=== PATIENT | female | born 1970 | race African-American/Black ===

== ENCOUNTER 2018-09-27 20:55 | Emergency (ER) | payer OTHER, MEDICAID ==
[~2018-09-27] VITALS: Ht 170.2 cm; Wt 79.0 kg
[2018-09-27 21:41] LABS: INR 1.1; PROTHROMBIN TIME 11.1 sec (9.6-11.0)
[2018-09-27 21:50] LABS: BASOPHILS % 0.9 % (0.0-2.0); EOSINOPHILS % 2.1 % (0.0-5.0); HEMATOCRIT. 43.6 % (36.0-48.0); HEMOGLOBIN. 14.7 g/dL (12.0-16.0); LYMPHOCYTES % 41.3 % (20.0-50.0); MEAN CORPUSCULAR HEMOGLOBIN 30.7 pg (28.0-32.0); MEAN CORPUSCULAR VOLUME 91.3 fL (81.0-99.0); MEAN PLATELET VOLUME 10.4 fl (7.4-10.4); MONOCYTES % 5.3 % (2.0-8.0); NEUTROPHILS % 50.4 % (40.0-76.0); PLATELET 229 x1000/uL (130-400); RED BLOOD CELL COUNT 4.78 mill/uL (4.2-5.4); RED CELL DISTRIBUTION WIDTH 16.1 % (11.6-14.6)
[2018-09-27 22:46] VITALS: BP 129/72
== END 2018-09-27 22:49 | disposition home or self-care (01) ==
LOC: ER 20:55
DX: R04.0 Epistaxis (principal); I11.0 Hypertensive heart disease with heart failure; I50.9 Heart failure, unspecified; Z98.890 Other specified postprocedural states
CPT/HCPCS: 36415; 99283

== ENCOUNTER 2018-11-23 18:58 | Emergency (ER) | payer OTHER, MEDICAID ==
[~2018-11-23] VITALS: Ht 170.2 cm; Wt 84.0 kg
[2018-11-23] MEDS ORDERED: IBUPROFEN 600MG TABLET PO ONE (20:45)
[2018-11-23] MEDS ORDERED: DIPHENHYDRAMINE 50MG CAPSULE PO ONE (20:45)
[2018-11-23 21:07] VITALS: BP 140/89
== END 2018-11-23 21:12 | disposition home or self-care (01) ==
LOC: ER 18:58
DX: S40.862A Insect bite (nonvenomous) of left upper arm, initial encounter (principal); S60.562A Insect bite (nonvenomous) of left hand, initial encounter; I10 Essential (primary) hypertension; F17.200 Nicotine dependence, unspecified, uncomplicated; W57.XXXA Bitten or stung by nonvenomous insect and other nonvenomous arthropods, initial encounter; Y93.89 Activity, other specified; Y92.89 Other specified places as the place of occurrence of the external cause; Y99.8 Other external cause status
CPT/HCPCS: 99283; Q0163; 99285